=== PATIENT | male | born 1970 | race African-American/Black ===

== ENCOUNTER 2024-03-08 11:51 | Emergency (ER) | payer MEDICAID, OTHER ==
[~2024-03-08] VITALS: Ht 180.3 cm; Wt 81.8 kg
[~2024-03-08 11:51] MED LIST: albuterol inh; dilantin; elavil
[2024-03-08] MEDS ORDERED: IBUP-2077 PO (11:57)
[2024-03-08] MEDS ORDERED: ALBU18HF12 PO ×2 (11:57→15:57)
[2024-03-08] MEDS ORDERED: PHEN100C10 PO (11:57)
[2024-03-08 11:58] VITALS: BP 134/79; TEMP 98.8
[2024-03-08 12:35] VITALS: PULSE 65; RESP 20; RESP 24; O2SAT 98
[2024-03-08] MEDS: IPRATROPIUM BROMIDE 0.5 MG/2.5 ML NEB SOLUTION NEB ONE ×2 (12:35→14:27)
[2024-03-08] MEDS: ALBUTEROL SULFATE 2.5 MG/0.5 ML 5 ML NEB SOLUTION NEB ONE ×2 (12:36→14:27)
[2024-03-08] MEDS: PredniSONE 20 MG TABLET PO ONE (12:53)
[2024-03-08 13:20] LABS: COVID AG,FIA SOURCE NASAL SWAB
[2024-03-08 13:46] VITALS: PULSE 72; RESP 20; O2SAT 99
[2024-03-08 13:59] LABS: INFLUENZA TYPE A NEGATIVE FOR TYPE A (NEGATIVE); INFLUENZA TYPE B NEGATIVE FOR TYPE B (NEGATIVE); SARS-COV2 (COVID) ANTIGEN,FIA Negative (Negative)
[2024-03-08] MEDS ORDERED: ALBUTEROL SULFATE 2.5 MG/0.5 ML NEB SOLUTION NEB ONE (14:00)
[2024-03-08] MEDS: LORazepam 2 MG/ML VIAL IVP ONE (14:04)
[2024-03-08 14:21] VITALS: PULSE 92; RESP 24; O2SAT 98
[2024-03-08 14:22] LABS: BASOPHILS % (AUTO) 0.3 % (0.0-2.0); EOSINOPHILS % (AUTO) 6.9 % (1.0-6.0); HEMATOCRIT 39.9 % (41-53); HEMOGLOBIN 13.3 g/dL (13.5-17.5); LYMPHOCYTES # (AUTO) 1.5 K/uL (1.0-4.8); LYMPHOCYTES % (AUTO) 20.7 % (22.0-44.0); MEAN CORPUSCULAR HEMOGLOBIN 30.6 pg (26.0-34.0); MEAN CORPUSCULAR HGB CONC 33.4 G/dL (31.0-37.0); MEAN CORPUSCULAR VOLUME 92 fL (80-100); NEUTROPHILS # (AUTO) 4.1 K/uL (1.8-7.7); NEUTROPHILS % (AUTO) 58.1 % (40.0-70.0); PLATELET COUNT (AUTO) 215 K/uL (150-450); RED BLOOD CELL COUNT(AUTO) 4.36 MIL/uL (4.50-5.90); RED CELL DISTRIBUTION WIDTH 13.3 % (11.5-14.5); WHITE BLOOD COUNT (AUTO) 7.1 K/uL (4.5-11.0)
[2024-03-08 14:38] LABS: ANION GAP 6 mmol/L (8-16); CARBON DIOXIDE 31 mmol/L (22-29); CHLORIDE 102 mmol/L (98-107); CREATININE 1.08 mg/dL (0.60-1.30); GLOMERULAR FILTR. RATE CALC > 60 mL/min (>60); GLUCOSE,RANDOM 100 mg/dL (70-110); POTASSIUM 4.4 mmol/L (3.5-5.1); SODIUM SERUM 139 mmol/L (136-145); UREA NITROGEN, BLOOD 14 mg/dL (7-18)
[2024-03-08 14:41] LABS: B-TYPE NATRIURETIC PEPTIDE 138 pg/mL (0-100)
[2024-03-08 14:43] LABS: TROPONIN I-HIGH SENSITIVITY 49 ng/L (<76)
[2024-03-08 15:35] VITALS: PULSE 93; RESP 24; O2SAT 99
== END 2024-03-08 15:45 | disposition left against medical advice (07) ==
LOC: EMS 11:51
DX: J45.901 Unspecified asthma with (acute) exacerbation (principal); L30.9 Dermatitis, unspecified; F12.90 Cannabis use, unspecified, uncomplicated; R07.89 Other chest pain; Z79.1 Long term (current) use of non-steroidal anti-inflammatories (NSAID); Z20.822 Contact with and (suspected) exposure to COVID-19
CPT/HCPCS: 99285; 96374; 71045; 87426; 80048; 83880; 84484; 85025; 87804; 36415; 94644; 93005; J2060; J7512; J7613

== ENCOUNTER 2024-06-01 04:48 | Inpatient (IN) | payer MEDICAID, OTHER ==
[~2024-06-01] VITALS: Ht 180.3 cm; Wt 91.1 kg
[2024-06-01] VITALS (13 sets, daily range): PULSE 58–128; RESP 18–32; O2SAT 95–100
[~2024-06-01 04:48] MED LIST changes: +ALBU18HF12 PO; +IBUP-2077 PO; +PHEN100C74 PO; -albuterol inh; -dilantin; -elavil
[2024-06-01] MEDS ORDERED: 0.9% SODIUM CHLORIDE 15 ML NEB SOLUTION NEB ONE (04:52)
[2024-06-01] MEDS: ALBUTEROL SULFATE 2.5 MG/0.5 ML 5 ML NEB SOLUTION NEB ONE (05:00)
[2024-06-01] MEDS: IPRATROPIUM BROMIDE 0.5 MG/2.5 ML NEB SOLUTION NEB ONE (05:00)
[2024-06-01] MEDS: MethylPREDNISolone SOD SUCC 125 MG/2 ML VIAL IVP ONE (05:04)
[2024-06-01] MEDS: SODIUM CHLORIDE 0.9% 1,000 ML IV ONE (05:04)
[2024-06-01] MEDS ORDERED: MIDAZOLAM HCL 5 MG/ML VIAL ONE (05:04)
[2024-06-01] MEDS: EPINEPHrine 1:1,000 [1 MG/ML] VIAL IM ONE (05:05)
[2024-06-01] MEDS: MIDAZOLAM HCL 5 MG/ML VIAL IVP ONE (05:05)
[2024-06-01] MEDS: ONDANSETRON HCL 4 MG/2 ML VIAL IVP ONE (05:15)
[2024-06-01 05:25] LABS: ANION GAP 4 mmol/L (8-16); CARBON DIOXIDE 31 mmol/L (22-29); CHLORIDE 103 mmol/L (98-107); CREATININE 1.06 mg/dL (0.60-1.30); GLOMERULAR FILTR. RATE CALC > 60 mL/min (>60); GLUCOSE,RANDOM 115 mg/dL (70-110); POTASSIUM 4.8 mmol/L (3.5-5.1); SODIUM SERUM 138 mmol/L (136-145); UREA NITROGEN, BLOOD 13 mg/dL (7-18)
[2024-06-01 05:34] LABS: BASOPHILS % (AUTO) 0.4 % (0.0-2.0); CREATINE KINASE, TOTAL ONLY 318 U/L (39-308); EOSINOPHILS % (AUTO) 3.7 % (1.0-6.0); HEMATOCRIT 39.5 % (41-53); HEMOGLOBIN 13.1 g/dL (13.5-17.5); LYMPHOCYTES # (AUTO) 2.1 K/uL (1.0-4.8); LYMPHOCYTES % (AUTO) 30.6 % (22.0-44.0); MEAN CORPUSCULAR HGB CONC 33.3 G/dL (31.0-37.0); MEAN CORPUSCULAR VOLUME 90 fL (80-100); MONOCYTES # (AUTO) 0.4 K/uL (0.1-1.0); NEUTROPHILS % (AUTO) 59.3 % (40.0-70.0); PLATELET COUNT (AUTO) 210 K/uL (150-450); RED BLOOD CELL COUNT(AUTO) 4.38 MIL/uL (4.50-5.90); RED CELL DISTRIBUTION WIDTH 15.2 % (11.5-14.5); WHITE BLOOD COUNT (AUTO) 6.8 K/uL (4.5-11.0)
[2024-06-01 05:36] LABS: TROPONIN I-HIGH SENSITIVITY 2919 ng/L (<76)
[2024-06-01 05:40] LABS: D-DIMER 1.59 mg/L FEU (0.00-0.50)
[2024-06-01] MEDS: PROPOFOL 1000 MG/ISO-OSM 100 ML IV PRN ×2 (05:52→19:50)
[2024-06-01 06:01] LABS: APPEARANCE,URINE CLEAR (CLEAR); BILIRUBIN,URINE NEGATIVE (NEGATIVE); COLOR,URINE YELLOW (YELLOW); GLUCOSE, URINE (UA) NEGATIVE (NEGATIVE); KETONES,URINE NEGATIVE (NEGATIVE); LEUKOCYTE ESTERASE ,URINE NEGATIVE (NEGATIVE); NITRATE,URINE NEGATIVE (NEGATIVE); OCCULT BLOOD,URINE TRACE (NEGATIVE); PH,URINE 5.5 (5.0-8.0); PH,URINE DRUG SCREEN 5.5 (5.0-8.0); PROTEIN,URINE TRACE mg/dL (NEGATIVE); SPECIFIC GRAVITIY, URINE 1.017 (1.003-1.030); UROBILINOGEN,URINE <=1.0 mg/dL (<=1.0)
[2024-06-01 06:06] LABS: ALCOHOL, URINE DRUG SCREEN NEGATIVE (NEGATIVE); AMPHET/METH SCREEN,URINE POSITIVE (NEGATIVE); BARBITURATE SCREEN, URINE NEGATIVE (NEGATIVE); BENZODIAZEPINES SCREEN,URINE POSITIVE (NEGATIVE); CANNABINOID SCREEN,URINE POSITIVE (NEGATIVE); COCAINE SCREEN,URINE NEGATIVE (NEGATIVE); METHADONE SCREEN, URINE NEGATIVE (NEGATIVE); OPIATE SCREEN,URINE NEGATIVE (NEGATIVE); PHENCYCLIDINE SCREEN,URINE NEGATIVE (NEGATIVE)
[2024-06-01 06:12] LABS: B-TYPE NATRIURETIC PEPTIDE 1940 pg/mL (0-100)
[2024-06-01] MEDS: ROCURONIUM BROMIDE 10 MG/ML 5 ML VIAL IVP ONE (06:14)
[2024-06-01] MEDS: ETOMIDATE 2 MG/ML 10 ML VIAL IVP ONE (06:14)
[2024-06-01 06:19] LABS: BACTERIA,URINE None Seen /HPF (None Seen); RBC,URINE 0-2 /HPF (0-2); SQUAMOUS EPITHELIAL CELL,UR Few /LPF (None Seen); WBC,URINE None Seen /HPF (0-5)
[2024-06-01 07:11] LABS: ABG BASE EXCESS -6.4 mmol/L (-2.0-3.0); ABG CARBOXYHEMOGLOBIN 0.5 % (0.5-1.5); ABG HCO3 18.7 mmol/L (21.0-28.0); ABG METHEMOGLOBIN 0.7 % (0.0-1.5); ABG OXYGEN CONTENT 20.6 mL/dL (15.0-23.0); ABG OXYGEN SATURATION 99.7 % (94.0-98.0); ABG OXYHEMOGLOBIN 98.5 % (94.0-98.0); ABG PCO2 64 mmHg (32.0-48.0); ABG PH 7.161 (7.350-7.450); SOURCE, BLOOD GAS ARTERIAL; TEMPERATURE, FAHRENHEIT, BG 100.6 FAHREN (96.0-98.6)
[2024-06-01 07:12] LABS: ABG A-A DIFF O2 196.1 mmHg (10-20.0); ALLEN TEST, BLOOD GAS Positive; O2 DEVICE,BLOOD GAS VENTILATOR (ROOM AIR); PEEP,BG 5 cm H2O; SITE, BLOOD GAS LFT RADIAL; SPONTANEOUS VT, BG 453 ml; VT, ABG 450 ml
[2024-06-01] MEDS: FUROSEMIDE 40 MG/4 ML VIAL IVP ONE (07:14)
[2024-06-01] MEDS: CefTRIAXone 1 GM/DEXTROSE 50 ML IV ONE (07:15)
[2024-06-01] MEDS ORDERED: HEPARIN SODIUM,PORCINE 5,000 UNITS/ML VIAL IVP PRN ×2 (07:30→19:45)
[2024-06-01] MEDS: HEPARIN SODIUM 25000 UNITS/D5W 250 ML IV PRN ×2 (07:40→19:50)
[2024-06-01] MEDS: LABETALOL HCL 5 MG/ML 20 ML VIAL IVP PRN (07:47)
[2024-06-01 07:52] LABS: PROTHROMBIN TIME 11.9 SEC (9.4-11.6)
[2024-06-01] MEDS: FentaNYL CIT 1000MCG/0.9% NACL 100 ML IV PRN ×2 (08:42→19:50)
[2024-06-01] MEDS ORDERED: MAGNESIUM HYDROXIDE SUSPENSION 30 ML UDCUP PO PRN (09:30)
[2024-06-01] MEDS ORDERED: LORazepam 2 MG/ML VIAL IVP PRN (09:30)
[2024-06-01] MEDS ORDERED: ACETAMINOPHEN 325 MG TABLET PO PRN (09:30)
[2024-06-01 09:55] LABS: PHENYTOIN (DILANTIN) 3.7 mcg/mL (10.0-20.0)
[2024-06-01] MEDS: AZITHROMYCIN 500 MG/NS 250 ML IV SCH (10:05)
[2024-06-01] MEDS: MethylPREDNISolone SOD SUCC 40 MG/ML VIAL IVP SCH (15:25)
[2024-06-01] MEDS: HEPARIN SODIUM,PORCINE 5,000 UNITS/ML VIAL IVP PRN (15:29)
[2024-06-01] MEDS: ALBUTEROL SULFATE 2.5 MG/0.5 ML NEB SOLUTION NEB SCH ×2 (15:31→19:22)
[2024-06-01] MEDS: IPRATROPIUM BROMIDE 0.5 MG/2.5 ML NEB SOLUTION NEB SCH (15:31)
[2024-06-01] MEDS: DOCUSATE SODIUM 100 MG CAPSULE PO SCH (19:33)
[2024-06-01 20:10] LABS: TROPONIN I-HIGH SENSITIVITY 1160 ng/L (<76)
[2024-06-01] MEDS: CHLORHEXIDINE GLUCONATE 2% TOWELETTE [2'S/6'S] TP SCH (21:52)
[2024-06-01] MEDS ORDERED: 0.9% SODIUM CHLORIDE 5 ML NEB SOLUTION NEB ONE (23:00)
[2024-06-02] VITALS (25 sets, daily range): BP systolic 94–117; BP diastolic 53–79; PULSE 60–78; RESP 24; TEMP 97.7–98.8; O2SAT 97–100
[2024-06-02 05:30] LABS: BASOPHILS % (AUTO) 0.1 % (0.0-2.0); EOSINOPHILS % (AUTO) 0 % (1.0-6.0); HEMATOCRIT 34.4 % (41-53); HEMOGLOBIN 11.7 g/dL (13.5-17.5); LYMPHOCYTES # (AUTO) 0.6 K/uL (1.0-4.8); MEAN CORPUSCULAR HEMOGLOBIN 30.9 pg (26.0-34.0); MEAN CORPUSCULAR VOLUME 91 fL (80-100); MONOCYTES # (AUTO) 0.4 K/uL (0.1-1.0); MONOCYTES % (AUTO) 4.1 % (2.0-9.0); NEUTROPHILS # (AUTO) 8.5 K/uL (1.8-7.7); PLATELET COUNT (AUTO) 171 K/uL (150-450); RED BLOOD CELL COUNT(AUTO) 3.79 MIL/uL (4.50-5.90); WHITE BLOOD COUNT (AUTO) 9.5 K/uL (4.5-11.0)
[2024-06-02 05:41] LABS: NEUTROPHILS % (AUTO) 89.8 % (40.0-70.0)
[2024-06-02 07:04] LABS: ANION GAP 3 mmol/L (8-16); CALCIUM, TOTAL 8.5 mg/dL (8.8-10.5); CARBON DIOXIDE 31 mmol/L (22-29); CHLORIDE 105 mmol/L (98-107); CREATININE 1.24 mg/dL (0.60-1.30); GLOMERULAR FILTR. RATE CALC > 60 mL/min (>60); GLUCOSE,RANDOM 103 mg/dL (70-110); POTASSIUM 4.8 mmol/L (3.5-5.1); SODIUM SERUM 139 mmol/L (136-145); UREA NITROGEN, BLOOD 15 mg/dL (7-18)
[2024-06-02 07:06] LABS: TROPONIN I-HIGH SENSITIVITY 1124 ng/L (<76)
[2024-06-02] MEDS: HEPARIN SODIUM,PORCINE 5,000 UNITS/ML VIAL IVP PRN (07:40)
[2024-06-02] MEDS: IPRATROPIUM BROMIDE 0.5 MG/2.5 ML NEB SOLUTION NEB PRN (07:51)
[2024-06-02] MEDS: ALBUTEROL SULFATE 2.5 MG/0.5 ML NEB SOLUTION NEB PRN (07:51)
[2024-06-02] MEDS: PANTOPRAZOLE SODIUM 40 MG/VIAL IVP SCH (08:21)
[2024-06-02] MEDS: CefTRIAXone 1 GM/DEXTROSE 50 ML IV SCH (08:22)
[2024-06-02] MEDS: FUROSEMIDE 20 MG/2 ML VIAL IVP ONE (10:50)
[2024-06-02] MEDS: IPRATROPIUM BROMIDE 0.5 MG/2.5 ML NEB SOLUTION NEB SCH (11:14)
[2024-06-02] MEDS: ALBUTEROL SULFATE 2.5 MG/0.5 ML NEB SOLUTION NEB SCH (11:14)
[2024-06-02 18:33] LABS: APPEARANCE,URINE CLEAR (CLEAR); BILIRUBIN,URINE NEGATIVE (NEGATIVE); COLOR,URINE LIGHT YELLOW (YELLOW); GLUCOSE, URINE (UA) NEGATIVE (NEGATIVE); KETONES,URINE NEGATIVE (NEGATIVE); LEUKOCYTE ESTERASE ,URINE NEGATIVE (NEGATIVE); NITRATE,URINE NEGATIVE (NEGATIVE); OCCULT BLOOD,URINE NEGATIVE (NEGATIVE); PH,URINE 5.5 (5.0-8.0); PROTEIN,URINE NEGATIVE (NEGATIVE); SPECIFIC GRAVITIY, URINE 1.017 (1.003-1.030); UROBILINOGEN,URINE <=1.0 mg/dL (<=1.0)
[2024-06-03] VITALS (22 sets, daily range): BP systolic 97–110; BP diastolic 58–75; PULSE 58–83; RESP 9–25; TEMP 96.4–99.1; O2SAT 97–99
[2024-06-03 07:03] LABS: BASOPHILS % (AUTO) 0.8 % (0.0-2.0); EOSINOPHILS % (AUTO) 0.5 % (1.0-6.0); HEMATOCRIT 33.6 % (41-53); HEMOGLOBIN 11.4 g/dL (13.5-17.5); LYMPHOCYTES # (AUTO) 1.4 K/uL (1.0-4.8); LYMPHOCYTES % (AUTO) 19.9 % (22.0-44.0); MEAN CORPUSCULAR HEMOGLOBIN 30.6 pg (26.0-34.0); MEAN CORPUSCULAR HGB CONC 33.8 G/dL (31.0-37.0); MEAN CORPUSCULAR VOLUME 91 fL (80-100); MONOCYTES # (AUTO) 0.6 K/uL (0.1-1.0); MONOCYTES % (AUTO) 8.9 % (2.0-9.0); NEUTROPHILS # (AUTO) 4.7 K/uL (1.8-7.7); NEUTROPHILS % (AUTO) 69.9 % (40.0-70.0); PLATELET COUNT (AUTO) 186 K/uL (150-450); RED CELL DISTRIBUTION WIDTH 15.6 % (11.5-14.5); WHITE BLOOD COUNT (AUTO) 6.8 K/uL (4.5-11.0)
[2024-06-03 07:18] LABS: ALANINE AMINOTRANSFERASE 68 U/L (12-78); ALBUMIN 2.4 g/dL (3.4-5.0); ALKALINE PHOSPHATASE 111 U/L (46-116); ANION GAP 4 mmol/L (8-16); ASPARTATE AMINOTRANSFERASE 109 U/L (15-37); BILIRUBIN,TOTAL 0.3 mg/dL (0.1-1.0); CALCIUM, TOTAL 8.6 mg/dL (8.8-10.5); CARBON DIOXIDE 30 mmol/L (22-29); CHLORIDE 105 mmol/L (98-107); CREATININE 1.08 mg/dL (0.60-1.30); GLOMERULAR FILTR. RATE CALC > 60 mL/min (>60); GLUCOSE,RANDOM 82 mg/dL (70-110); POTASSIUM 4.4 mmol/L (3.5-5.1); SODIUM SERUM 139 mmol/L (136-145); TOTAL PROTEIN, SERUM 6.4 g/dL (6.4-8.2); UREA NITROGEN, BLOOD 23 mg/dL (7-18)
[2024-06-03] MEDS: DEXMEDETOMIDINE 400 MCG/NS 100 ML IV PRN (09:58)
[2024-06-03 16:04] LABS: ABG A-A DIFF O2 109.4 mmHg (10-20.0); ABG BASE EXCESS 3.4 mmol/L (-2.0-3.0); ABG CARBOXYHEMOGLOBIN 0.2 % (0.5-1.5); ABG METHEMOGLOBIN 0.3 % (0.0-1.5); ABG OXYGEN CONTENT 16.9 mL/dL (15.0-23.0); ABG OXYHEMOGLOBIN 96.5 % (94.0-98.0); ABG PCO2 44 mmHg (32.0-48.0); ABG PH 7.421 (7.350-7.450); ABG TOTAL HEMOGLOBIN 12.4 G/dL (13.5-17.5); ALLEN TEST, BLOOD GAS Positive; O2 DEVICE,BLOOD GAS VENTILATOR (ROOM AIR); PEEP,BG 5 cm H2O; PO2, ARTERIAL BG 89.9 mmHg (83.0-108.0); SITE, BLOOD GAS LFT RADIAL; SOURCE, BLOOD GAS ARTERIAL; TEMPERATURE, FAHRENHEIT, BG 97.2 FAHREN (96.0-98.6); VT, ABG 450 ml
[2024-06-03] MEDS: HEPARIN SODIUM,PORCINE 5,000 UNITS/ML VIAL SQ SCH (16:22)
[2024-06-04] VITALS (20 sets, daily range): BP systolic 107–132; BP diastolic 66–89; PULSE 63–85; RESP 10–27; TEMP 98.1–98.9; O2SAT 96–99
[2024-06-04 06:25] LABS: BASOPHILS % (AUTO) 0.1 % (0.0-2.0); EOSINOPHILS % (AUTO) 0 % (1.0-6.0); HEMATOCRIT 35.6 % (41-53); LYMPHOCYTES # (AUTO) 0.5 K/uL (1.0-4.8); LYMPHOCYTES % (AUTO) 7.1 % (22.0-44.0); MEAN CORPUSCULAR HEMOGLOBIN 30.5 pg (26.0-34.0); MEAN CORPUSCULAR HGB CONC 33.7 G/dL (31.0-37.0); MEAN CORPUSCULAR VOLUME 91 fL (80-100); MONOCYTES # (AUTO) 0.4 K/uL (0.1-1.0); MONOCYTES % (AUTO) 6.1 % (2.0-9.0); NEUTROPHILS # (AUTO) 5.7 K/uL (1.8-7.7); PLATELET COUNT (AUTO) 173 K/uL (150-450); RED BLOOD CELL COUNT(AUTO) 3.94 MIL/uL (4.50-5.90); RED CELL DISTRIBUTION WIDTH 15.5 % (11.5-14.5); WHITE BLOOD COUNT (AUTO) 6.5 K/uL (4.5-11.0)
[2024-06-04 06:38] LABS: ANION GAP 6 mmol/L (8-16); CARBON DIOXIDE 30 mmol/L (22-29); CHLORIDE 107 mmol/L (98-107); CREATININE 0.78 mg/dL (0.60-1.30); GLOMERULAR FILTR. RATE CALC > 60 mL/min (>60); GLUCOSE,RANDOM 117 mg/dL (70-110); POTASSIUM 4.6 mmol/L (3.5-5.1); SODIUM SERUM 143 mmol/L (136-145); UREA NITROGEN, BLOOD 25 mg/dL (7-18)
[2024-06-04 06:52] LABS: NEUTROPHILS % (AUTO) 86.7 % (40.0-70.0)
[2024-06-04] MEDS ORDERED: SODIUM CHLORIDE 0.9% 250 ML IV ONE (12:01)
[2024-06-04 12:45] LABS: ABG BASE EXCESS 3.6 mmol/L (-2.0-3.0); ABG CARBOXYHEMOGLOBIN 0.3 % (0.5-1.5); ABG HCO3 27.5 mmol/L (21.0-28.0); ABG METHEMOGLOBIN 0.3 % (0.0-1.5); ABG OXYGEN CONTENT 18.2 mL/dL (15.0-23.0); ABG OXYGEN SATURATION 98.9 % (94.0-98.0); ABG OXYHEMOGLOBIN 98.3 % (94.0-98.0); ABG PCO2 42 mmHg (32.0-48.0); ABG PH 7.441 (7.350-7.450); PO2, ARTERIAL BG 151.7 mmHg (83.0-108.0); SOURCE, BLOOD GAS ARTERIAL; TEMPERATURE, FAHRENHEIT, BG 99.1 FAHREN (96.0-98.6)
[2024-06-04 12:46] LABS: ALLEN TEST, BLOOD GAS Positive; O2 DEVICE,BLOOD GAS VENTILATOR (ROOM AIR); PEEP,BG 5 cm H2O; PRESSURE SUPPORT, BG 5 cm H2O; SITE, BLOOD GAS RT RADIAL; SPONTANEOUS VT, BG 771 ml; VENT MODE, BG Press. Support Vent. (ROOM AIR)
[2024-06-04] MEDS: ONDANSETRON HCL 4 MG/2 ML VIAL IVP PRN (19:53)
[2024-06-04] MEDS: LORazepam 2 MG/ML VIAL IVP PRN (20:16)
[2024-06-05] VITALS (12 sets, daily range): BP systolic 130–161; BP diastolic 74–111; PULSE 79–95; RESP 10–27; TEMP 99–99.8; O2SAT 92–99
[2024-06-05] MEDS: LevETIRAcetam 500 MG in DEXTROSE 5%-WATER 100 ML IV SCH (03:45)
[2024-06-05 07:18] LABS: BASOPHILS % (AUTO) 0.4 % (0.0-2.0); EOSINOPHILS % (AUTO) 0 % (1.0-6.0); HEMATOCRIT 42.1 % (41-53); HEMOGLOBIN 13.9 g/dL (13.5-17.5); LYMPHOCYTES % (AUTO) 11.3 % (22.0-44.0); MEAN CORPUSCULAR HEMOGLOBIN 30.3 pg (26.0-34.0); MEAN CORPUSCULAR HGB CONC 32.9 G/dL (31.0-37.0); MEAN CORPUSCULAR VOLUME 92 fL (80-100); MONOCYTES # (AUTO) 0.6 K/uL (0.1-1.0); MONOCYTES % (AUTO) 6.1 % (2.0-9.0); NEUTROPHILS # (AUTO) 7.6 K/uL (1.8-7.7); NEUTROPHILS % (AUTO) 82.2 % (40.0-70.0); PLATELET COUNT (AUTO) 180 K/uL (150-450); RED BLOOD CELL COUNT(AUTO) 4.58 MIL/uL (4.50-5.90); RED CELL DISTRIBUTION WIDTH 15.5 % (11.5-14.5); WHITE BLOOD COUNT (AUTO) 9.2 K/uL (4.5-11.0)
[2024-06-05 07:32] LABS: ANION GAP 6 mmol/L (8-16); CALCIUM, TOTAL 9.2 mg/dL (8.8-10.5); CARBON DIOXIDE 32 mmol/L (22-29); CHLORIDE 106 mmol/L (98-107); CREATININE 0.89 mg/dL (0.60-1.30); GLOMERULAR FILTR. RATE CALC > 60 mL/min (>60); GLUCOSE,RANDOM 93 mg/dL (70-110); POTASSIUM 4.8 mmol/L (3.5-5.1); SODIUM SERUM 144 mmol/L (136-145); UREA NITROGEN, BLOOD 24 mg/dL (7-18)
[2024-06-06] VITALS (17 sets, daily range): BP systolic 122–171; BP diastolic 50–121; PULSE 68–102; RESP 15–23; TEMP 97.5–100.1; O2SAT 94–100
[2024-06-06] MEDS ORDERED: DIAZEPAM 5 MG TABLET PO PRN (00:15)
[2024-06-06] MEDS ORDERED: CloNIDine 0.3 MG/24 HOUR PATCH TD ONE (00:30)
[2024-06-06] MEDS: DIAZEPAM 5 MG/ML 2 ML SYRINGE IVP PRN (00:45)
[2024-06-06 01:04] LABS: ANION GAP 5 mmol/L (8-16); CALCIUM, TOTAL 9.3 mg/dL (8.8-10.5); CARBON DIOXIDE 32 mmol/L (22-29); CHLORIDE 104 mmol/L (98-107); CREATININE 0.87 mg/dL (0.60-1.30); GLOMERULAR FILTR. RATE CALC > 60 mL/min (>60); GLUCOSE,RANDOM 97 mg/dL (70-110); POTASSIUM 4.2 mmol/L (3.5-5.1); SODIUM SERUM 141 mmol/L (136-145); UREA NITROGEN, BLOOD 25 mg/dL (7-18)
[2024-06-06] MEDS: HydrALAZINE HCL 20 MG/ML VIAL IVP PRN (01:06)
[2024-06-06 01:10] LABS: ALANINE AMINOTRANSFERASE 69 U/L (12-78); ALBUMIN 2.9 g/dL (3.4-5.0); ALKALINE PHOSPHATASE 136 U/L (46-116); ASPARTATE AMINOTRANSFERASE 163 U/L (15-37); BILIRUBIN,TOTAL 0.7 mg/dL (0.1-1.0); TOTAL PROTEIN, SERUM 7.8 g/dL (6.4-8.2)
[2024-06-06] MEDS: 1: MAGNESIUM SULFATE 2 GM, MVI, ADULT NO.1 WITH VIT K 10 ML, THIAMINE 100 MG, FOLIC ACID IV SCH (01:28)
[2024-06-06] MEDS: CloNIDine 0.3 MG/24 HOUR PATCH TD SCH (01:30)
[2024-06-06] MEDS: LACTULOSE 200 GM/300 ML RECTAL SOLUTION PR ONE (01:31)
[2024-06-06] MEDS: DIAZEPAM 5 MG/ML 2 ML SYRINGE IVP SCH (02:28)
[2024-06-06 06:06] LABS: BASOPHILS % (AUTO) 0.2 % (0.0-2.0); EOSINOPHILS % (AUTO) 0 % (1.0-6.0); HEMATOCRIT 42.5 % (41-53); HEMOGLOBIN 14.3 g/dL (13.5-17.5); LYMPHOCYTES # (AUTO) 1.2 K/uL (1.0-4.8); LYMPHOCYTES % (AUTO) 10.1 % (22.0-44.0); MEAN CORPUSCULAR HEMOGLOBIN 30.2 pg (26.0-34.0); MEAN CORPUSCULAR HGB CONC 33.7 G/dL (31.0-37.0); MEAN CORPUSCULAR VOLUME 90 fL (80-100); MONOCYTES # (AUTO) 0.6 K/uL (0.1-1.0); MONOCYTES % (AUTO) 5.3 % (2.0-9.0); NEUTROPHILS # (AUTO) 9.9 K/uL (1.8-7.7); NEUTROPHILS % (AUTO) 84.4 % (40.0-70.0); PLATELET COUNT (AUTO) 205 K/uL (150-450); RED BLOOD CELL COUNT(AUTO) 4.73 MIL/uL (4.50-5.90); RED CELL DISTRIBUTION WIDTH 15.2 % (11.5-14.5); WHITE BLOOD COUNT (AUTO) 11.7 K/uL (4.5-11.0)
[2024-06-06 06:19] LABS: ANION GAP 7 mmol/L (8-16); CARBON DIOXIDE 30 mmol/L (22-29); CHLORIDE 103 mmol/L (98-107); CREATININE 0.74 mg/dL (0.60-1.30); GLUCOSE,RANDOM 109 mg/dL (70-110); POTASSIUM 4.2 mmol/L (3.5-5.1); SODIUM SERUM 140 mmol/L (136-145); UREA NITROGEN, BLOOD 23 mg/dL (7-18)
[2024-06-06 06:20] LABS: ALANINE AMINOTRANSFERASE 70 U/L (12-78); ALBUMIN 3.1 g/dL (3.4-5.0); ALKALINE PHOSPHATASE 136 U/L (46-116); ASPARTATE AMINOTRANSFERASE 171 U/L (15-37); BILIRUBIN,TOTAL 0.8 mg/dL (0.1-1.0); CALCIUM, TOTAL 9.3 mg/dL (8.8-10.5); GLOMERULAR FILTR. RATE CALC > 60 mL/min (>60); TOTAL PROTEIN, SERUM 8.3 g/dL (6.4-8.2)
[2024-06-06] MEDS ORDERED: SODIUM CHLORIDE 0.9% 1,000 ML ONE (14:19)
[2024-06-07] VITALS (18 sets, daily range): BP systolic 118–144; BP diastolic 76–97; PULSE 66–78; RESP 13–22; TEMP 97.7–99.5; O2SAT 94–100
[2024-06-07 05:41] LABS: BASOPHILS % (AUTO) 0.7 % (0.0-2.0); EOSINOPHILS % (AUTO) 0.5 % (1.0-6.0); HEMATOCRIT 39.5 % (41-53); HEMOGLOBIN 13.3 g/dL (13.5-17.5); LYMPHOCYTES % (AUTO) 23.9 % (22.0-44.0); MEAN CORPUSCULAR HEMOGLOBIN 30.2 pg (26.0-34.0); MEAN CORPUSCULAR HGB CONC 33.7 G/dL (31.0-37.0); MEAN CORPUSCULAR VOLUME 90 fL (80-100); MONOCYTES % (AUTO) 11.6 % (2.0-9.0); NEUTROPHILS # (AUTO) 5.4 K/uL (1.8-7.7); NEUTROPHILS % (AUTO) 63.3 % (40.0-70.0); PLATELET COUNT (AUTO) 164 K/uL (150-450); RED BLOOD CELL COUNT(AUTO) 4.41 MIL/uL (4.50-5.90); WHITE BLOOD COUNT (AUTO) 8.5 K/uL (4.5-11.0)
[2024-06-07 06:02] LABS: ALANINE AMINOTRANSFERASE 71 U/L (12-78); ALBUMIN 2.7 g/dL (3.4-5.0); ALKALINE PHOSPHATASE 116 U/L (46-116); ANION GAP 4 mmol/L (8-16); ASPARTATE AMINOTRANSFERASE 145 U/L (15-37); BILIRUBIN,TOTAL 0.7 mg/dL (0.1-1.0); CALCIUM, TOTAL 8.9 mg/dL (8.8-10.5); CARBON DIOXIDE 34 mmol/L (22-29); CHLORIDE 106 mmol/L (98-107); CREATININE 1.12 mg/dL (0.60-1.30); GLOMERULAR FILTR. RATE CALC > 60 mL/min (>60); GLUCOSE,RANDOM 80 mg/dL (70-110); POTASSIUM 3.6 mmol/L (3.5-5.1); SODIUM SERUM 144 mmol/L (136-145); TOTAL PROTEIN, SERUM 7.2 g/dL (6.4-8.2); UREA NITROGEN, BLOOD 31 mg/dL (7-18)
[2024-06-07] MEDS ORDERED: DIAZEPAM 5 MG TABLET PO PRN (07:00)
[2024-06-07] MEDS: MethylPREDNISolone SOD SUCC 40 MG/ML VIAL IVP SCH (08:08)
[2024-06-07] MEDS ORDERED: DIAZEPAM 5 MG TABLET PO SCH (09:00)
[2024-06-07] MEDS ORDERED: SODIUM CHLORIDE 0.9% 1,000 ML ONE (12:46)
[2024-06-07] MEDS ORDERED: SODIUM CHLORIDE 0.9% 250 ML IV ONE (12:47)
[2024-06-07] MEDS ORDERED: PredniSONE 20 MG TABLET PO SCH (14:15)
[2024-06-08] VITALS (11 sets, daily range): BP systolic 118–143; BP diastolic 70–97; PULSE 70–83; RESP 17–20; TEMP 97.4–98.1; O2SAT 95–100
[2024-06-08 04:01] LABS: GLUCOMETER DEV NAME(LOC) 5N.1D; GLUCOSE,POINT OF CARE 113 MG/DL (70-110)
[2024-06-08] MEDS: MethylPREDNISolone SOD SUCC 40 MG/ML VIAL IVP SCH (08:26)
[2024-06-08] MEDS: DEXTROSE 5%-0.45% SODIUM CHL 1,000 ML IV SCH (15:00)
[2024-06-08] MEDS: HALOPERIDOL LACTATE 5 MG/ML VIAL IM ONE (16:33)
[2024-06-09] VITALS (15 sets, daily range): BP systolic 126–146; BP diastolic 82–96; PULSE 68–92; RESP 16–19; TEMP 97.7–98.5; O2SAT 93–100
[2024-06-09] MEDS ORDERED: DIAZEPAM 5 MG TABLET PO PRN (07:00)
[2024-06-09] MEDS ORDERED: DIAZEPAM 5 MG TABLET PO SCH (09:00)
[2024-06-09] MEDS: RisperiDONE ER SUSPENSION 125 MG/0.35 ML PRE-FILLED SYRINGE SQ ONE (15:07)
[2024-06-10 00:54] VITALS: BP 138/51; PULSE 87; RESP 18; TEMP 97.8; O2SAT 95
[2024-06-10 04:56] VITALS: BP 109/69; PULSE 80; RESP 18; TEMP 98.5; O2SAT 95
[2024-06-10] MEDS ORDERED: DIAZEPAM 5 MG TABLET PO PRN (07:00)
[2024-07-09] MEDS ORDERED: RisperiDONE ER SUSPENSION 125 MG/0.35 ML PRE-FILLED SYRINGE SQ SCH (09:00)
== END 2024-06-10 08:25 | disposition left against medical advice (07) | DRG 720 ==
LOC: EMS 04:49 → EDH 07:52 → ICU 22:55 → 5S 06-07 18:48
PROVIDERS: ADMIT Internal Medicine; ATTEND Internal Medicine
PROC: 5A1945Z Respiratory Ventilation, 24-96 Consecutive Hours (ICD-10-PCS; principal; 2024-06-01)
PROC: 0BH17EZ Insertion of Endotracheal Airway into Trachea, Via Natural or Artificial Opening (ICD-10-PCS; 2024-06-01)
DX: A41.9 Sepsis, unspecified organism (principal); J96.01 Acute respiratory failure with hypoxia; J69.0 Pneumonitis due to inhalation of food and vomit; I21.4 Non-ST elevation (NSTEMI) myocardial infarction; G92.9 Unspecified toxic encephalopathy; I50.23 Acute on chronic systolic (congestive) heart failure; J45.902 Unspecified asthma with status asthmaticus; E87.4 Mixed disorder of acid-base balance; F20.0 Paranoid schizophrenia; I11.0 Hypertensive heart disease with heart failure; F15.10 Other stimulant abuse, uncomplicated; I42.9 Cardiomyopathy, unspecified; J96.02 Acute respiratory failure with hypercapnia; I08.3 Combined rheumatic disorders of mitral, aortic and tricuspid valves; R13.10 Dysphagia, unspecified; R65.20 Severe sepsis without septic shock; Z53.29 Procedure and treatment not carried out because of patient's decision for other reasons; Z99.11 Dependence on respirator [ventilator] status; Z78.1 Physical restraint status; Z91.199 Patient's noncompliance with other medical treatment and regimen due to unspecified reason
CPT/HCPCS: 36600; 70450; 71045; 74230; 80048; 80053; 80185; 80307; 81001; 81003; 82140; 82550; 82805; 82962; 83880; 84484; 85025; 85379; 85610; 85730; 87040; 87070; 87081; 87205; 92526; 92610; 92611; 93005; 93306; 93971; 94002; 94003; 94640; 94644; 96365; 96372; 96375; 97163; 97167; 97535; 99285; G0378; J0171; J0360; J0456; J0696; J0712; J1630; J1644; J1940; J2060; J2250; J2405; J2470; J2704; J2919; J3010; J3411; J3475; J3490; J7030; J7050; J7060; 36415-L1; 36415-TC; 82803-TC; J7613

== ENCOUNTER 2024-06-23 00:45 | Emergency (ER) | payer OTHER ==
[~2024-06-23] VITALS: Ht 177.8 cm; Wt 95.0 kg
[2024-06-23 00:46] VITALS: BP 134/89; TEMP 98.6
[2024-06-23] MEDS: ALBUTEROL SULFATE 2.5 MG/0.5 ML NEB SOLUTION NEB ONE (01:06)
[2024-06-23] MEDS: IPRATROPIUM BROMIDE 0.5 MG/2.5 ML NEB SOLUTION NEB ONE (01:06)
[2024-06-23 01:10] VITALS: PULSE 96; RESP 20; O2SAT 99
[2024-06-23 01:25] VITALS: PULSE 96; RESP 18; O2SAT 99
[2024-06-23] MEDS: FUROSEMIDE 20 MG TABLET PO ONE (01:42)
== END 2024-06-23 04:18 | disposition home or self-care (01) ==
LOC: EMS 00:45
DX: R06.02 Shortness of breath (principal); I11.0 Hypertensive heart disease with heart failure; I50.9 Heart failure, unspecified; J45.909 Unspecified asthma, uncomplicated; F12.90 Cannabis use, unspecified, uncomplicated; E78.00 Pure hypercholesterolemia, unspecified; Z79.1 Long term (current) use of non-steroidal anti-inflammatories (NSAID)
CPT/HCPCS: 71045; 93005; 94640; 99285; J7613